=== PATIENT | female | born 1935 | race Caucasian/White ===

== ENCOUNTER → 2017-11-06 | Outpatient (REF) | payer MEDICARE, OTHER ==
[2017-11-06 19:10] LABS: ALBUMIN 4.1 GM/DL (3.2-5.2); ALBUMIN/GLOBULIN RATIO 1.32 (1.00-1.93); ALKALINE PHOSPHATASE 62 U/L (45-117); ALT/SGPT 18 U/L (12-78); ANION GAP 5 MEQ/L (8-16); AST/SGOT 14 U/L (7-37); BILIRUBIN,TOTAL 0.3 MG/DL (0.2-1.0); BLOOD UREA NITROGEN 15 MG/DL (7-18); C REACTIVE PROTEIN QUANTITATIV < 0.30 MG/DL (0.00-0.30); CALCIUM LEVEL 8.7 MG/DL (8.8-10.2); CARBON DIOXIDE LEVEL 31 MEQ/L (21-32); CHLORIDE LEVEL 103 MEQ/L (98-107); CREATININE FOR GFR 0.78 MG/DL (0.55-1.30); FREE T4 1.18 NG/DL (0.76-1.46); GLOMERULAR FILTRATION RATE > 60.0 (>32); GLUCOSE, FASTING 88 MG/DL (70-100); IRON (FE) 56 UG/DL (50-170); PERCENT SATURATION 17.3 % (13.2-45.0); SODIUM LEVEL 139 MEQ/L (136-145); TOTAL IRON BINDING CAPACITY 324 UG/DL (250-450); TOTAL PROTEIN 7.2 GM/DL (6.4-8.2)
[2017-11-06 19:12] LABS: APPEARANCE, URINE CLEAR (CLEAR); BACTERIA, URINE AUTO NEGATIVE (NEGATIVE); BILIRUBIN, URINE AUTO NEGATIVE (NEGATIVE); BLOOD, URINE BLOOD 1+ (NEGATIVE); COLOR, URINE YELLOW (YELLOW); GLUCOSE, URINE (UA) AUTO NEGATIVE (NEGATIVE); KETONE, URINE AUTO NEGATIVE (NEGATIVE); LEUKOCYTE ESTERASE, URINE AUTO NEGATIVE (NEGATIVE); NITRITE, URINE AUTO NEGATIVE (NEGATIVE); PROTEIN, URINE AUTO NEGATIVE (NEGATIVE); RBC, URINE AUTO 17 /HPF (0-3); SPECIFIC GRAVITY URINE AUTO 1.015 (1.002-1.035); SQUAMOUS EPITHELIAL CELL UR AU 0 /HPF (0-6); UROBILINOGEN, URINE AUTO 0.2 mg/dL (0.0-2.0); WBC, URINE AUTO 1 /HPF (0-3)
[2017-11-06 19:27] LABS: BASO # 0.1 10^3/uL (0.0-0.2); BASO % 0.8 % (0.0-1.0); EOS # 0.1 10^3/uL (0.0-0.50); EOS % 1.5 % (0.0-3.0); HEMATOCRIT 39.9 % (36.0-47.0); IMMATURE GRANULOCYTE % 0.3 % (0-3.0); LYMPH # 1.1 10^3/uL (1.5-4.5); LYMPH % 16.9 % (24.0-44.0); MEAN CORPUSCULAR HEMOGLOBIN 31.6 pg (27.0-33.0); MEAN CORPUSCULAR HGB CONC 32.6 g/dl (32.0-36.5); MEAN CORPUSCULAR VOLUME 97.1 fl (80.0-96.0); MONO # 0.5 10^3/uL (0.0-0.8); MONO % 7.5 % (0.0-5.0); NEUTROPHILS # 4.9 10^3/uL (1.8-7.7); PLATELET COUNT, AUTOMATED 310 10^3/uL (150-450); RED BLOOD COUNT 4.11 10^6/uL (4.00-5.40); RED CELL DISTRIBUTION WIDTH 13.2 % (11.5-14.5); WHITE BLOOD COUNT 6.6 10^3/uL (4.0-10.0)
[2017-11-06 20:08] LABS: ERYTHROCYTE SEDIMENTATION RATE 5 mm/hr (0-30)
[2017-11-09 00:08] LABS: Lyme Disease IgG/IgM Antibodie <0.91 ISR (0.00-0.90); Lyme Disease IgM Ab Quantitati <0.80 index (0.00-0.79)
== END ==
LOC: M SFHCPLAZ 13:29
DX: A69.20 Lyme disease, unspecified (principal); E03.9 Hypothyroidism, unspecified; R53.82 Chronic fatigue, unspecified; R35.0 Frequency of micturition; E78.00 Pure hypercholesterolemia, unspecified; F51.01 Primary insomnia; Z79.82 Long term (current) use of aspirin; Z79.899 Other long term (current) drug therapy
CPT/HCPCS: 83550

== ENCOUNTER → 2017-11-22 | Outpatient (REF) | payer MEDICARE, OTHER ==
[2017-11-22 13:44] LABS: APPEARANCE, URINE CLEAR (CLEAR); BACTERIA, URINE AUTO NEGATIVE (NEGATIVE); BILIRUBIN, URINE AUTO NEGATIVE (NEGATIVE); BLOOD, URINE BLOOD NEGATIVE (NEGATIVE); COLOR, URINE YELLOW (YELLOW); GLUCOSE, URINE (UA) AUTO NEGATIVE (NEGATIVE); KETONE, URINE AUTO NEGATIVE (NEGATIVE); LEUKOCYTE ESTERASE, URINE AUTO 2+ (NEGATIVE); MUCUS, URINE SMALL (NEGATIVE); NITRITE, URINE AUTO NEGATIVE (NEGATIVE); PROTEIN, URINE AUTO NEGATIVE (NEGATIVE); RBC, URINE AUTO 4 /HPF (0-3); SQUAMOUS EPITHELIAL CELL UR AU 0 /HPF (0-6); UROBILINOGEN, URINE AUTO 0.2 mg/dL (0.0-2.0); WBC, URINE AUTO 4 /HPF (0-3)
== END ==
LOC: M SMT 13:04
DX: R31.29 Other microscopic hematuria (principal)
CPT/HCPCS: 81001

== ENCOUNTER → 2018-01-01 | Outpatient (CLI) | payer MEDICARE, OTHER ==
[2018-01-01 19:56] LABS: BASO % 0.1 % (0.0-1.0); HEMATOCRIT 46.8 % (36.0-47.0); HEMOGLOBIN 15.4 g/dl (12.0-15.5); IMMATURE GRANULOCYTE % 0.7 % (0-3.0); LYMPH # 0.6 10^3/uL (1.5-4.5); LYMPH % 4.4 % (24.0-44.0); MEAN CORPUSCULAR HEMOGLOBIN 31.6 pg (27.0-33.0); MEAN CORPUSCULAR HGB CONC 32.9 g/dl (32.0-36.5); MEAN CORPUSCULAR VOLUME 96.1 fl (80.0-96.0); MONO # 0.3 10^3/uL (0.0-0.8); MONO % 2.3 % (0.0-5.0); NEUTROPHILS # 13.2 10^3/uL (1.8-7.7); NEUTROPHILS % 92.5 % (36.0-66.0); PLATELET COUNT, AUTOMATED 363 10^3/uL (150-450); RED BLOOD COUNT 4.87 10^6/uL (4.00-5.40); RED CELL DISTRIBUTION WIDTH 13.2 % (11.5-14.5); WHITE BLOOD COUNT 14.3 10^3/uL (4.0-10.0)
[2018-01-01 20:09] LABS: INR 1.01; PROTHROMBIN TIME 13.4 SECONDS (12.1-14.4)
[2018-01-01 20:10] LABS: PARTIAL THROMBOPLASTIN TIME 25.3 SECONDS (25.4-37.6)
[2018-01-01 20:12] LABS: COLLAGEN EPINEPHRINE 79 SECONDS (74-162)
[2018-01-01 20:23] LABS: ALBUMIN 3.8 GM/DL (3.2-5.2); ALBUMIN/GLOBULIN RATIO 0.95 (1.00-1.93); ALKALINE PHOSPHATASE 93 U/L (45-117); ALT/SGPT 30 U/L (12-78); ANION GAP 10 MEQ/L (8-16); AST/SGOT 13 U/L (7-37); BILIRUBIN,TOTAL 0.4 MG/DL (0.2-1.0); BLOOD UREA NITROGEN 22 MG/DL (7-18); CALCIUM LEVEL 8.9 MG/DL (8.8-10.2); CARBON DIOXIDE LEVEL 32 MEQ/L (21-32); CHLORIDE LEVEL 93 MEQ/L (98-107); CREATININE FOR GFR 0.82 MG/DL (0.55-1.30); GLOMERULAR FILTRATION RATE > 60.0 (>32); GLUCOSE, FASTING 175 MG/DL (70-100); SODIUM LEVEL 135 MEQ/L (136-145); TOTAL PROTEIN 7.8 GM/DL (6.4-8.2)
== END ==
LOC: M LAB 19:06
DX: Z01.818 Encounter for other preprocedural examination (principal)

== ENCOUNTER 2018-01-04 06:31 | Inpatient (IN) | payer MEDICARE, OTHER ==
[2018-01-04] MEDS ORDERED: LR 1,000 ML IV (06:45)
[2018-01-04] MEDS ORDERED: LIDOCAINE 2% INJ 100 MG/5 ML SDV (FOR ANES.) As Ordered (07:29)
[2018-01-04] MEDS ORDERED: fentaNYL 100 MCG/2 ML INJECTION (J3010) As Ordered (07:29)
[2018-01-04] MEDS ORDERED: ROCURONIUM BROMIDE 50 MG/5 ML VIAL As Ordered ×2 (07:29→10:49)
[2018-01-04] MEDS ORDERED: PROPOFOL 200 MG/20 ML VIAL As Ordered ×2 (07:29→07:58)
[2018-01-04] MEDS ORDERED: REMIFENTANIL 1MG 3ML VIAL As Ordered (07:42)
[2018-01-04] MEDS ORDERED: PHENYLEPHRINE INJ 10MG/ML VIAL (J2370) As Ordered (07:47)
[2018-01-04 09:22] LABS: COLLAGEN EPINEPHRINE 93 SECONDS (74-162)
[2018-01-04] MEDS ORDERED: dexameTHASONE 4 MG/ML 1ML VIAL (J1100) As Ordered (10:50)
[2018-01-04 10:51] LABS: iSTAT CA++ 4.4 MG/DL (4.5-5.3)
[2018-01-04] MEDS ORDERED: ePHEDrine SULFATE 25 MG/5 ML(5MG/ML) SYRINGE As Ordered (11:04)
[2018-01-04] MEDS: THROMBIN SOLN 20,000 UNITS KIT As Ordered ×2 (11:35→12:20)
[2018-01-04] MEDS: LIDOCAINE W/EPINEPHRINE 1% 20ML VIAL As Ordered (12:35)
[2018-01-04] MEDS ORDERED: ONDANSETRON 4MG/2ML VIAL (J2405) As Ordered (12:38)
[2018-01-04] MEDS ORDERED: NEOSTIGMINE 10 MG/10 ML VIAL (J2710) As Ordered (12:39)
[2018-01-04] MEDS ORDERED: GLYCOPYRROLATE INJ 0.2 MG/ML 2 ML VIAL As Ordered ×2 (12:39)
[2018-01-04] MEDS ORDERED: HYDROmorphone HCL 2 MG/ML 1ML VIAL (J1170) As Ordered (12:51)
[2018-01-04] MEDS: KCL 20MEQ IN D5/0.45NS 1000ML 1,000 ML IV ×2 (13:30→23:56)
[2018-01-04] MEDS: LR 1,000 ML IV (13:45)
[2018-01-04] MEDS ORDERED: HYDROMORPHONE HCL 0.5 MG/ 0.5 ML SYRINGE (J1170 PER 1) IV (13:45)
[2018-01-04] MEDS ORDERED: ONDANSETRON 4MG/2ML VIAL (J2405) IV (13:45)
[2018-01-04] MEDS ORDERED: fentaNYL 100 MCG/2 ML INJECTION (J3010) IV (13:45)
[2018-01-04] MEDS ORDERED: LABETALOL HCL 100 MG/20 ML VIAL IV (13:45)
[2018-01-04] MEDS ORDERED: PERCOCET 5MG/325MG TAB PO (13:45)
[2018-01-04 14:13] LABS: CHLORIDE,RANDOM URINE 63 MEQ/L; POTASSIUM RANDOM URINE 21.8 MEQ/L; SODIUM,RANDOM URINE 70 MEQ/L
[2018-01-04 14:16] LABS: OSMOLALITY SERUM 283 MOSM/KG (280-301)
[2018-01-04 14:18] LABS: ANION GAP 9 MEQ/L (8-16); BLOOD UREA NITROGEN 18 MG/DL (7-18); CALCIUM LEVEL 8.2 MG/DL (8.8-10.2); CARBON DIOXIDE LEVEL 28 MEQ/L (21-32); CHLORIDE LEVEL 99 MEQ/L (98-107); CREATININE FOR GFR 0.74 MG/DL (0.55-1.30); GLOMERULAR FILTRATION RATE > 60.0 (>32); GLUCOSE, FASTING 111 MG/DL (70-100); POTASSIUM SERUM 4.2 MEQ/L (3.5-5.1); SODIUM LEVEL 136 MEQ/L (136-145)
[2018-01-04 14:19] LABS: OSMOLALITY URINE 258 MOSM/KG (500-800)
[2018-01-04] MEDS: ACETAMINOPHEN 500 MG TAB PO (14:25)
[2018-01-04] MEDS: ceFAZolin SOD 1 GM in D5W MINI-BAG PLUS 50 ML IV ×2 (16:45→23:56)
[2018-01-04] MEDS: dexameTHASONE 4 MG/ML 1ML VIAL (J1100) IV ×2 (16:45→23:56)
[2018-01-04] MEDS: PANTOPRAZOLE 40MG INJ (PROTONIX) (C9113) IV (20:31)
[2018-01-04] MEDS: ACETAMINOPHEN TAB 650MG DOSE (2X325MG) PO (20:31)
[2018-01-04] MEDS: SERTRALINE HCL 25 MG TABLET PO (20:32)
[2018-01-05] MEDS: ACETAMINOPHEN TAB 650MG DOSE (2X325MG) PO ×3 (02:36→15:37)
[2018-01-05] MEDS: ceFAZolin SOD 1 GM in D5W MINI-BAG PLUS 50 ML IV ×2 (04:54→12:20)
[2018-01-05] MEDS: dexameTHASONE 4 MG/ML 1ML VIAL (J1100) IV ×4 (04:54→23:52)
[2018-01-05] MEDS: LEVOTHYROXINE 50MCG TABLET (0.05MG) PO (05:05)
[2018-01-05 05:13] LABS: BASO % 0.1 % (0.0-1.0); EOS % 0.1 % (0.0-3.0); HEMATOCRIT 36.2 % (36.0-47.0); HEMOGLOBIN 12.3 g/dl (12.0-15.5); IMMATURE GRANULOCYTE % 0.7 % (0-3.0); LYMPH # 0.5 10^3/uL (1.5-4.5); LYMPH % 2.4 % (24.0-44.0); MEAN CORPUSCULAR HEMOGLOBIN 31.8 pg (27.0-33.0); MEAN CORPUSCULAR VOLUME 93.5 fl (80.0-96.0); MONO # 0.7 10^3/uL (0.0-0.8); MONO % 3.5 % (0.0-5.0); NEUTROPHILS # 17.8 10^3/uL (1.8-7.7); NEUTROPHILS % 93.2 % (36.0-66.0); PLATELET COUNT, AUTOMATED 264 10^3/uL (150-450); RED BLOOD COUNT 3.87 10^6/uL (4.00-5.40); RED CELL DISTRIBUTION WIDTH 13.2 % (11.5-14.5)
[2018-01-05 05:32] LABS: OSMOLALITY SERUM 270 MOSM/KG (280-301)
[2018-01-05 05:37] LABS: ALBUMIN 2.1 GM/DL (3.2-5.2); ALBUMIN/GLOBULIN RATIO 0.95 (1.00-1.93); ALKALINE PHOSPHATASE 44 U/L (45-117); ALT/SGPT 30 U/L (12-78); ANION GAP 10 MEQ/L (8-16); AST/SGOT 17 U/L (7-37); BILIRUBIN,TOTAL 0.3 MG/DL (0.2-1.0); CARBON DIOXIDE LEVEL 21 MEQ/L (21-32); CHLORIDE LEVEL 108 MEQ/L (98-107); GLOMERULAR FILTRATION RATE > 60.0 (>32); GLUCOSE, FASTING 99 MG/DL (70-100); POTASSIUM SERUM 3.2 MEQ/L (3.5-5.1); SODIUM LEVEL 139 MEQ/L (136-145); TOTAL PROTEIN 4.3 GM/DL (6.4-8.2)
[2018-01-05 05:43] LABS: CALCIUM,RANDOM URINE 11.4 MG/DL; CHLORIDE,RANDOM URINE 166 MEQ/L; SODIUM,RANDOM URINE 164 MEQ/L
[2018-01-05 05:55] LABS: BLOOD UREA NITROGEN 9 MG/DL (7-18)
[2018-01-05 05:59] LABS: CALCIUM LEVEL 5.8 MG/DL (8.8-10.2)
[2018-01-05] MEDS ORDERED: LIDOCAINE 1% MDV 20ML VIAL SQ (06:00)
[2018-01-05] MEDS: CALCIUM/VITAMIN D 500 MG TAB PO ×2 (06:51)
[2018-01-05 07:39] LABS: OSMOLALITY URINE 448 MOSM/KG (500-800)
[2018-01-05] MEDS: SERTRALINE HCL 50 MG TAB PO (08:47)
[2018-01-05] MEDS: PANTOPRAZOLE 40MG INJ (PROTONIX) (C9113) IV ×2 (08:48→20:22)
[2018-01-05 08:56] LABS: GLUCOSE, URINE (UA) AUTO NEGATIVE (NEGATIVE)
[2018-01-05] MEDS ORDERED: CALCIUM/VITAMIN D 500 MG TAB PO (09:00)
[2018-01-05 09:39] LABS: IONIZED CALCIUM 4.1 MG/DL (4.5-5.3)
[2018-01-05 09:47] LABS: MAGNESIUM LEVEL 1.4 MG/DL (1.8-2.4)
[2018-01-05] MEDS: KCL 20MEQ IN D5/0.45NS 1000ML 1,000 ML IV (10:45)
[2018-01-05] MEDS: POTASSIUM CHLORIDE 10 MEQ SR TABLET PO (10:46)
[2018-01-05] MEDS: MAG SULF 1GM/100ML (MAG RUN) 1 GM in APPROPRIATE DILUENT 1 EA IV ×2 (10:47→14:11)
[2018-01-05] MEDS: NEUTRA-PHOS 1.25 GM PACKET PO ×2 (12:21→17:15)
[2018-01-05] MEDS: CALCIUM CHLORIDE 10% 1 GM in D5W 100 ML IV ×2 (15:06)
[2018-01-05] MEDS: CALCITRIOL 0.25 MCG CAP (S0169) PO ×2 (15:37→20:23)
[2018-01-05 17:45] LABS: IONIZED CALCIUM 4.8 MG/DL (4.5-5.3)
[2018-01-05 18:06] LABS: ANION GAP 11 MEQ/L (8-16); BLOOD UREA NITROGEN 11 MG/DL (7-18); CALCIUM LEVEL 9.7 MG/DL (8.8-10.2); CARBON DIOXIDE LEVEL 25 MEQ/L (21-32); CHLORIDE LEVEL 88 MEQ/L (98-107); CREATININE FOR GFR 0.74 MG/DL (0.55-1.30); GLUCOSE, FASTING 138 MG/DL (70-100); MAGNESIUM LEVEL 2.3 MG/DL (1.8-2.4); POTASSIUM SERUM 4.7 MEQ/L (3.5-5.1); SODIUM LEVEL 124 MEQ/L (136-145)
[2018-01-05 18:08] LABS: GLOMERULAR FILTRATION RATE > 60.0 (>32)
[2018-01-05] MEDS: NORCO, ANEXSIA 5/325MG TABLET (HYDROcodone/ACETAMINOPHEN) PO (18:47)
[2018-01-05] MEDS: SERTRALINE HCL 25 MG TABLET PO (20:22)
[2018-01-05] MEDS: MINERAL ICE TOP (20:23)
[2018-01-05 20:48] LABS: ANION GAP 9 MEQ/L (8-16); BLOOD UREA NITROGEN 12 MG/DL (7-18); CALCIUM LEVEL 8.8 MG/DL (8.8-10.2); CARBON DIOXIDE LEVEL 26 MEQ/L (21-32); CHLORIDE LEVEL 88 MEQ/L (98-107); CREATININE FOR GFR 0.72 MG/DL (0.55-1.30); GLOMERULAR FILTRATION RATE > 60.0 (>32); GLUCOSE, FASTING 147 MG/DL (70-100); POTASSIUM SERUM 4.7 MEQ/L (3.5-5.1); SODIUM LEVEL 123 MEQ/L (136-145)
[2018-01-05 21:09] LABS: CALCIUM,RANDOM URINE 34.6 MG/DL; CHLORIDE,RANDOM URINE 152 MEQ/L; SODIUM,RANDOM URINE 79 MEQ/L
[2018-01-05] MEDS: KCL 20MEQ in NS 1000ML 1,000 ML IV (21:40)
[2018-01-05] MEDS: FUROSEMIDE 40 MG/4 ML VIAL (J1940) IV (21:40)
[2018-01-05 22:46] LABS: OSMOLALITY URINE 429 MOSM/KG (500-800)
[2018-01-06 00:32] LABS: ANION GAP 8 MEQ/L (8-16); BLOOD UREA NITROGEN 13 MG/DL (7-18); CALCIUM LEVEL 8.7 MG/DL (8.8-10.2); CARBON DIOXIDE LEVEL 30 MEQ/L (21-32); CHLORIDE LEVEL 85 MEQ/L (98-107); CREATININE FOR GFR 0.72 MG/DL (0.55-1.30); GLOMERULAR FILTRATION RATE > 60.0 (>32); GLUCOSE, FASTING 130 MG/DL (70-100); POTASSIUM SERUM 3.7 MEQ/L (3.5-5.1); SODIUM LEVEL 123 MEQ/L (136-145)
[2018-01-06] MEDS: NORCO, ANEXSIA 5/325MG TABLET (HYDROcodone/ACETAMINOPHEN) PO ×2 (00:40→22:35)
[2018-01-06] MEDS: ACETAMINOPHEN TAB 650MG DOSE (2X325MG) PO ×2 (04:13→10:19)
[2018-01-06 04:21] LABS: BASO % 0.1 % (0.0-1.0); HEMATOCRIT 37.3 % (36.0-47.0); IMMATURE GRANULOCYTE % 0.8 % (0-3.0); LYMPH # 0.6 10^3/uL (1.5-4.5); LYMPH % 3.7 % (24.0-44.0); MEAN CORPUSCULAR HEMOGLOBIN 31.7 pg (27.0-33.0); MEAN CORPUSCULAR HGB CONC 34.9 g/dl (32.0-36.5); MONO # 0.9 10^3/uL (0.0-0.8); MONO % 5.4 % (0.0-5.0); NEUTROPHILS # 14.5 10^3/uL (1.8-7.7); PLATELET COUNT, AUTOMATED 250 10^3/uL (150-450); RED CELL DISTRIBUTION WIDTH 12.8 % (11.5-14.5); WHITE BLOOD COUNT 16.1 10^3/uL (4.0-10.0)
[2018-01-06 04:22] LABS: IONIZED CALCIUM 4.1 MG/DL (4.5-5.3)
[2018-01-06 04:48] LABS: ALBUMIN/GLOBULIN RATIO 0.94 (1.00-1.93); ALKALINE PHOSPHATASE 70 U/L (45-117); ALT/SGPT 126 U/L (12-78); ANION GAP 12 MEQ/L (8-16); AST/SGOT 68 U/L (7-37); BILIRUBIN,TOTAL 0.5 MG/DL (0.2-1.0); BLOOD UREA NITROGEN 14 MG/DL (7-18); CALCIUM LEVEL 8.5 MG/DL (8.8-10.2); CARBON DIOXIDE LEVEL 28 MEQ/L (21-32); CHLORIDE LEVEL 86 MEQ/L (98-107); CREATININE FOR GFR 0.68 MG/DL (0.55-1.30); GLOMERULAR FILTRATION RATE > 60.0 (>32); GLUCOSE, FASTING 119 MG/DL (70-100); MAGNESIUM LEVEL 1.9 MG/DL (1.8-2.4); PHOSPHORUS LEVEL 3.7 MG/DL (2.5-4.9); POTASSIUM SERUM 4.3 MEQ/L (3.5-5.1); SODIUM LEVEL 126 MEQ/L (136-145); TOTAL PROTEIN 6.2 GM/DL (6.4-8.2)
[2018-01-06 04:57] LABS: CALCIUM,RANDOM URINE 16.3 MG/DL; CHLORIDE,RANDOM URINE 101 MEQ/L; POTASSIUM RANDOM URINE 38.2 MEQ/L; SODIUM,RANDOM URINE 78 MEQ/L
[2018-01-06 05:10] LABS: OSMOLALITY SERUM 259 MOSM/KG (280-301)
[2018-01-06 05:16] LABS: OSMOLALITY URINE 334 MOSM/KG (500-800)
[2018-01-06] MEDS: SERTRALINE HCL 50 MG TAB PO (05:55)
[2018-01-06] MEDS: dexameTHASONE 4 MG/ML 1ML VIAL (J1100) IV ×3 (05:55→16:58)
[2018-01-06] MEDS: LEVOTHYROXINE 50MCG TABLET (0.05MG) PO (05:55)
[2018-01-06 06:07] LABS: GLUCOSE, URINE (UA) AUTO NEGATIVE (NEGATIVE)
[2018-01-06] MEDS: NEUTRA-PHOS 1.25 GM PACKET PO ×3 (07:54→21:20)
[2018-01-06 08:53] LABS: ANION GAP 8 MEQ/L (8-16); BLOOD UREA NITROGEN 15 MG/DL (7-18); CALCIUM LEVEL 8.8 MG/DL (8.8-10.2); CARBON DIOXIDE LEVEL 30 MEQ/L (21-32); CHLORIDE LEVEL 86 MEQ/L (98-107); CREATININE FOR GFR 0.66 MG/DL (0.55-1.30); GLOMERULAR FILTRATION RATE > 60.0 (>32); GLUCOSE, FASTING 112 MG/DL (70-100); POTASSIUM SERUM 4.4 MEQ/L (3.5-5.1); SODIUM LEVEL 124 MEQ/L (136-145)
[2018-01-06] MEDS: CALCIUM/VITAMIN D 500 MG TAB PO (09:00)
[2018-01-06] MEDS: CALCITRIOL 0.25 MCG CAP (S0169) PO (10:01)
[2018-01-06] MEDS: SODIUM CHLORIDE 1 GM TAB PO (10:02)
[2018-01-06] MEDS: FUROSEMIDE 40 MG/4 ML VIAL (J1940) IV (10:02)
[2018-01-06] MEDS: PANTOPRAZOLE 40MG INJ (PROTONIX) (C9113) IV ×2 (10:03→21:20)
[2018-01-06] MEDS: KCL 20MEQ in NS 1000ML 1,000 ML IV (10:45)
[2018-01-06] MEDS: LOSARTAN 25 MG TAB PO (10:45)
[2018-01-06 12:55] LABS: ANION GAP 10 MEQ/L (8-16); BLOOD UREA NITROGEN 17 MG/DL (7-18); CALCIUM LEVEL 8.6 MG/DL (8.8-10.2); CARBON DIOXIDE LEVEL 32 MEQ/L (21-32); CHLORIDE LEVEL 81 MEQ/L (98-107); CREATININE FOR GFR 0.75 MG/DL (0.55-1.30); GLOMERULAR FILTRATION RATE > 60.0 (>32); GLUCOSE, FASTING 134 MG/DL (70-100); POTASSIUM SERUM 3.4 MEQ/L (3.5-5.1); SODIUM LEVEL 123 MEQ/L (136-145)
[2018-01-06] MEDS: SODIUM CHLORIDE 3% 500 ML IV (14:14)
[2018-01-06 16:56] LABS: ANION GAP 13 MEQ/L (8-16); BLOOD UREA NITROGEN 21 MG/DL (7-18); CARBON DIOXIDE LEVEL 27 MEQ/L (21-32); CHLORIDE LEVEL 84 MEQ/L (98-107); CREATININE FOR GFR 0.93 MG/DL (0.55-1.30); GLOMERULAR FILTRATION RATE > 60.0 (>32); GLUCOSE, FASTING 160 MG/DL (70-100); POTASSIUM SERUM 3.7 MEQ/L (3.5-5.1); SODIUM LEVEL 124 MEQ/L (136-145)
[2018-01-06] MEDS: POTASSIUM CHLORIDE 10 MEQ SR TABLET PO ×2 (16:58→21:20)
[2018-01-06] MEDS ORDERED: SERTRALINE HCL 25 MG TABLET PO (18:00)
[2018-01-06 18:54] LABS: ANION GAP 12 MEQ/L (8-16); BLOOD UREA NITROGEN 23 MG/DL (7-18); CARBON DIOXIDE LEVEL 29 MEQ/L (21-32); CHLORIDE LEVEL 85 MEQ/L (98-107); CREATININE FOR GFR 0.84 MG/DL (0.55-1.30); GLOMERULAR FILTRATION RATE > 60.0 (>32); GLUCOSE, FASTING 122 MG/DL (70-100); SODIUM LEVEL 126 MEQ/L (136-145)
[2018-01-06 20:44] LABS: ANION GAP 11 MEQ/L (8-16); BLOOD UREA NITROGEN 26 MG/DL (7-18); CALCIUM LEVEL 8.9 MG/DL (8.8-10.2); CARBON DIOXIDE LEVEL 29 MEQ/L (21-32); CHLORIDE LEVEL 87 MEQ/L (98-107); CREATININE FOR GFR 0.87 MG/DL (0.55-1.30); GLOMERULAR FILTRATION RATE > 60.0 (>32); GLUCOSE, FASTING 120 MG/DL (70-100); POTASSIUM SERUM 4.1 MEQ/L (3.5-5.1); SODIUM LEVEL 127 MEQ/L (136-145)
[2018-01-06] MEDS: dexameTHASONE 20 MG/5 ML VIAL (J1100) IV (23:13)
[2018-01-06 23:22] LABS: ANION GAP 9 MEQ/L (8-16); BLOOD UREA NITROGEN 35 MG/DL (7-18); CALCIUM LEVEL 9.1 MG/DL (8.8-10.2); CARBON DIOXIDE LEVEL 28 MEQ/L (21-32); CHLORIDE LEVEL 90 MEQ/L (98-107); CREATININE FOR GFR 0.89 MG/DL (0.55-1.30); GLOMERULAR FILTRATION RATE > 60.0 (>32); GLUCOSE, FASTING 164 MG/DL (70-100); POTASSIUM SERUM 4.1 MEQ/L (3.5-5.1); SODIUM LEVEL 127 MEQ/L (136-145)
[2018-01-07] MEDS: SODIUM CHLORIDE 3% 500 ML IV (04:28)
[2018-01-07] MEDS: dexameTHASONE 20 MG/5 ML VIAL (J1100) IV ×3 (04:28→17:53)
[2018-01-07 04:29] LABS: EOS % 0.2 % (0.0-3.0); HEMATOCRIT 35.6 % (36.0-47.0); HEMOGLOBIN 12.5 g/dl (12.0-15.5); LYMPH # 0.4 10^3/uL (1.5-4.5); LYMPH % 3.3 % (24.0-44.0); MEAN CORPUSCULAR HEMOGLOBIN 31.9 pg (27.0-33.0); MEAN CORPUSCULAR HGB CONC 35.1 g/dl (32.0-36.5); MEAN CORPUSCULAR VOLUME 90.8 fl (80.0-96.0); MONO # 0.6 10^3/uL (0.0-0.8); MONO % 4.3 % (0.0-5.0); NEUTROPHILS # 12.1 10^3/uL (1.8-7.7); NEUTROPHILS % 91.2 % (36.0-66.0); PLATELET COUNT, AUTOMATED 251 10^3/uL (150-450); RED BLOOD COUNT 3.92 10^6/uL (4.00-5.40); RED CELL DISTRIBUTION WIDTH 13.4 % (11.5-14.5); WHITE BLOOD COUNT 13.2 10^3/uL (4.0-10.0)
[2018-01-07 04:50] LABS: ALBUMIN 2.5 GM/DL (3.2-5.2); ALBUMIN/GLOBULIN RATIO 0.74 (1.00-1.93); ALKALINE PHOSPHATASE 62 U/L (45-117); ALT/SGPT 81 U/L (12-78); ANION GAP 8 MEQ/L (8-16); AST/SGOT 32 U/L (7-37); BILIRUBIN,TOTAL 0.3 MG/DL (0.2-1.0); BLOOD UREA NITROGEN 32 MG/DL (7-18); CALCIUM LEVEL 8.8 MG/DL (8.8-10.2); CARBON DIOXIDE LEVEL 29 MEQ/L (21-32); CHLORIDE LEVEL 93 MEQ/L (98-107); CREATININE FOR GFR 0.89 MG/DL (0.55-1.30); GLOMERULAR FILTRATION RATE > 60.0 (>32); GLUCOSE, FASTING 140 MG/DL (70-100); POTASSIUM SERUM 4.5 MEQ/L (3.5-5.1); SODIUM LEVEL 130 MEQ/L (136-145); TOTAL PROTEIN 5.9 GM/DL (6.4-8.2)
[2018-01-07 05:00] LABS: OSMOLALITY SERUM 282 MOSM/KG (280-301)
[2018-01-07] MEDS: LEVOTHYROXINE 50MCG TABLET (0.05MG) PO (05:38)
[2018-01-07 06:28] LABS: GLUCOSE, URINE (UA) AUTO NEGATIVE (NEGATIVE)
[2018-01-07 06:36] LABS: OSMOLALITY URINE 746 MOSM/KG (500-800)
[2018-01-07 06:38] LABS: MAGNESIUM LEVEL 1.9 MG/DL (1.8-2.4); PHOSPHORUS LEVEL 4.8 MG/DL (2.5-4.9)
[2018-01-07 06:46] LABS: CALCIUM,RANDOM URINE 34.9 MG/DL; CHLORIDE,RANDOM URINE 23 MEQ/L; POTASSIUM RANDOM URINE 57.8 MEQ/L; SODIUM,RANDOM URINE 15 MEQ/L
[2018-01-07] MEDS: PANTOPRAZOLE 40MG INJ (PROTONIX) (C9113) IV ×2 (08:50→20:58)
[2018-01-07] MEDS: ACETAMINOPHEN TAB 650MG DOSE (2X325MG) PO ×3 (08:50→20:58)
[2018-01-07] MEDS: CALCIUM/VITAMIN D 500 MG TAB PO (08:50)
[2018-01-07] MEDS: POTASSIUM CHLORIDE 10 MEQ SR TABLET PO ×2 (08:51→20:58)
[2018-01-07 09:11] LABS: TOTAL 25(OH) VITAMIN D 40.7 NG/ML (30.0-100.0)
[2018-01-07] MEDS: SODIUM CHLORIDE 1 GM TAB PO ×3 (09:43→20:58)
[2018-01-07 09:56] LABS: PTH INTACT 63.7 PG/ML (18.5-88.0)
[2018-01-07 10:42] LABS: ALBUMIN 2.9 GM/DL (3.2-5.2); ANION GAP 12 MEQ/L (8-16); BLOOD UREA NITROGEN 31 MG/DL (7-18); CARBON DIOXIDE LEVEL 25 MEQ/L (21-32); CHLORIDE LEVEL 94 MEQ/L (98-107); CREATININE FOR GFR 0.93 MG/DL (0.55-1.30); GLOMERULAR FILTRATION RATE > 60.0 (>32); GLUCOSE, FASTING 191 MG/DL (70-100); PHOSPHORUS LEVEL 4.1 MG/DL (2.5-4.9); POTASSIUM SERUM 4.3 MEQ/L (3.5-5.1); SODIUM LEVEL 131 MEQ/L (136-145)
[2018-01-07] MEDS: NORCO, ANEXSIA 5/325MG TABLET (HYDROcodone/ACETAMINOPHEN) PO (11:18)
[2018-01-07 18:27] LABS: ANION GAP 10 MEQ/L (8-16); BLOOD UREA NITROGEN 32 MG/DL (7-18); CALCIUM LEVEL 8.7 MG/DL (8.8-10.2); CARBON DIOXIDE LEVEL 25 MEQ/L (21-32); CHLORIDE LEVEL 96 MEQ/L (98-107); CREATININE FOR GFR 0.83 MG/DL (0.55-1.30); GLOMERULAR FILTRATION RATE > 60.0 (>32); GLUCOSE, FASTING 155 MG/DL (70-100); POTASSIUM SERUM 4.2 MEQ/L (3.5-5.1); SODIUM LEVEL 131 MEQ/L (136-145)
[2018-01-07] MEDS: dexameTHASONE 4 MG/ML 1ML VIAL (J1100) IV (23:47)
[2018-01-08] MEDS: dexameTHASONE 4 MG/ML 1ML VIAL (J1100) IV ×4 (04:19→23:26)
[2018-01-08] MEDS: ACETAMINOPHEN TAB 650MG DOSE (2X325MG) PO (04:21)
[2018-01-08 04:47] LABS: HEMATOCRIT 35.4 % (36.0-47.0); MEAN CORPUSCULAR HEMOGLOBIN 31.7 pg (27.0-33.0); MEAN CORPUSCULAR HGB CONC 33.9 g/dl (32.0-36.5); MEAN CORPUSCULAR VOLUME 93.4 fl (80.0-96.0); PLATELET COUNT, AUTOMATED 232 10^3/uL (150-450); RED BLOOD COUNT 3.79 10^6/uL (4.00-5.40); RED CELL DISTRIBUTION WIDTH 13.8 % (11.5-14.5); WHITE BLOOD COUNT 12.6 10^3/uL (4.0-10.0)
[2018-01-08 05:10] LABS: ALBUMIN 2.4 GM/DL (3.2-5.2); ANION GAP 8 MEQ/L (8-16); BLOOD UREA NITROGEN 32 MG/DL (7-18); CALCIUM LEVEL 8.5 MG/DL (8.8-10.2); CARBON DIOXIDE LEVEL 29 MEQ/L (21-32); CHLORIDE LEVEL 96 MEQ/L (98-107); CREATININE FOR GFR 0.71 MG/DL (0.55-1.30); GLOMERULAR FILTRATION RATE > 60.0 (>32); GLUCOSE, FASTING 124 MG/DL (70-100); PHOSPHORUS LEVEL 3.1 MG/DL (2.5-4.9); POTASSIUM SERUM 4.7 MEQ/L (3.5-5.1); SODIUM LEVEL 133 MEQ/L (136-145)
[2018-01-08] MEDS: LEVOTHYROXINE 50MCG TABLET (0.05MG) PO (05:55)
[2018-01-08] MEDS: LOSARTAN 25 MG TAB PO (06:26)
[2018-01-08] MEDS: PANTOPRAZOLE 40MG INJ (PROTONIX) (C9113) IV ×2 (08:35→20:16)
[2018-01-08] MEDS: CALCIUM/VITAMIN D 500 MG TAB PO (08:35)
[2018-01-08] MEDS: SODIUM CHLORIDE 1 GM TAB PO ×3 (08:35→20:16)
[2018-01-08] MEDS: POTASSIUM CHLORIDE 10 MEQ SR TABLET PO ×2 (08:36→20:16)
[2018-01-08] MEDS: MIRALAX *UNIT DOSE* 17GM PACKET PO (20:17)
[2018-01-09] MEDS: LEVOTHYROXINE 50MCG TABLET (0.05MG) PO (05:16)
[2018-01-09] MEDS: dexameTHASONE 4 MG/ML 1ML VIAL (J1100) IV ×4 (05:16→22:09)
[2018-01-09 08:25] LABS: ALBUMIN 2.8 GM/DL (3.2-5.2); ANION GAP 10 MEQ/L (8-16); BLOOD UREA NITROGEN 28 MG/DL (7-18); CALCIUM LEVEL 8.7 MG/DL (8.8-10.2); CARBON DIOXIDE LEVEL 27 MEQ/L (21-32); CHLORIDE LEVEL 96 MEQ/L (98-107); CREATININE FOR GFR 0.64 MG/DL (0.55-1.30); GLOMERULAR FILTRATION RATE > 60.0 (>32); GLUCOSE, FASTING 124 MG/DL (70-100); PHOSPHORUS LEVEL 3.2 MG/DL (2.5-4.9); SODIUM LEVEL 133 MEQ/L (136-145)
[2018-01-09] MEDS: PANTOPRAZOLE 40MG INJ (PROTONIX) (C9113) IV ×2 (08:52→21:18)
[2018-01-09] MEDS: SODIUM CHLORIDE 1 GM TAB PO ×3 (08:52→21:17)
[2018-01-09] MEDS: CALCIUM/VITAMIN D 500 MG TAB PO (08:52)
[2018-01-10] MEDS: dexameTHASONE 4 MG/ML 1ML VIAL (J1100) IV ×4 (05:21→21:38)
[2018-01-10] MEDS: LEVOTHYROXINE 50MCG TABLET (0.05MG) PO (05:21)
[2018-01-10 07:17] LABS: ALBUMIN 2.6 GM/DL (3.2-5.2); ANION GAP 8 MEQ/L (8-16); BLOOD UREA NITROGEN 23 MG/DL (7-18); CALCIUM LEVEL 8.2 MG/DL (8.8-10.2); CARBON DIOXIDE LEVEL 30 MEQ/L (21-32); CHLORIDE LEVEL 95 MEQ/L (98-107); CREATININE FOR GFR 0.57 MG/DL (0.55-1.30); GLOMERULAR FILTRATION RATE > 60.0 (>32); GLUCOSE, FASTING 102 MG/DL (70-100); POTASSIUM SERUM 4.4 MEQ/L (3.5-5.1); SODIUM LEVEL 133 MEQ/L (136-145)
[2018-01-10] MEDS: SODIUM CHLORIDE 1 GM TAB PO ×3 (09:18→21:37)
[2018-01-10] MEDS: PANTOPRAZOLE 40MG INJ (PROTONIX) (C9113) IV ×2 (09:18→21:37)
[2018-01-10] MEDS: CALCIUM/VITAMIN D 500 MG TAB PO (09:18)
[2018-01-10] MEDS: amLODIPine 5 MG TAB PO (21:00)
[2018-01-10] MEDS: ACETAMINOPHEN TAB 650MG DOSE (2X325MG) PO (21:37)
[2018-01-11] MEDS: dexameTHASONE 4 MG/ML 1ML VIAL (J1100) IV ×3 (05:53→16:53)
[2018-01-11] MEDS: LEVOTHYROXINE 50MCG TABLET (0.05MG) PO (05:53)
[2018-01-11] MEDS: PANTOPRAZOLE 40MG INJ (PROTONIX) (C9113) IV ×2 (09:00→20:33)
[2018-01-11 10:26] LABS: ALBUMIN 2.5 GM/DL (3.2-5.2); ANION GAP 10 MEQ/L (8-16); BLOOD UREA NITROGEN 33 MG/DL (7-18); CALCIUM LEVEL 8.1 MG/DL (8.8-10.2); CARBON DIOXIDE LEVEL 27 MEQ/L (21-32); CHLORIDE LEVEL 98 MEQ/L (98-107); CREATININE FOR GFR 0.66 MG/DL (0.55-1.30); GLOMERULAR FILTRATION RATE > 60.0 (>32); GLUCOSE, FASTING 125 MG/DL (70-100); PHOSPHORUS LEVEL 2.9 MG/DL (2.5-4.9); POTASSIUM SERUM 4.2 MEQ/L (3.5-5.1); SODIUM LEVEL 135 MEQ/L (136-145)
[2018-01-11] MEDS: CALCIUM/VITAMIN D 500 MG TAB PO (10:38)
[2018-01-11] MEDS: amLODIPine 5 MG TAB PO ×2 (10:38→20:33)
[2018-01-11] MEDS: SODIUM CHLORIDE 1 GM TAB PO ×3 (10:39→20:32)
[2018-01-11] MEDS: ACETAMINOPHEN TAB 650MG DOSE (2X325MG) PO (20:40)
[2018-01-12] MEDS: LEVOTHYROXINE 50MCG TABLET (0.05MG) PO (06:28)
[2018-01-12 06:49] LABS: ALBUMIN 2.5 GM/DL (3.2-5.2); ALBUMIN/GLOBULIN RATIO 0.93 (1.00-1.93); ALKALINE PHOSPHATASE 49 U/L (45-117); ALT/SGPT 116 U/L (12-78); ANION GAP 8 MEQ/L (8-16); AST/SGOT 42 U/L (7-37); BILIRUBIN,TOTAL 0.3 MG/DL (0.2-1.0); BLOOD UREA NITROGEN 31 MG/DL (7-18); CARBON DIOXIDE LEVEL 28 MEQ/L (21-32); CHLORIDE LEVEL 101 MEQ/L (98-107); CREATININE FOR GFR 0.57 MG/DL (0.55-1.30); GLOMERULAR FILTRATION RATE > 60.0 (>32); GLUCOSE, FASTING 100 MG/DL (70-100); PHOSPHORUS LEVEL 2.7 MG/DL (2.5-4.9); POTASSIUM SERUM 4.1 MEQ/L (3.5-5.1); SODIUM LEVEL 137 MEQ/L (136-145); TOTAL PROTEIN 5.2 GM/DL (6.4-8.2)
[2018-01-12] MEDS: ISOSORBIDE MON. (IMDUR) 30 MG XR TAB PO (07:15)
[2018-01-12] MEDS: amLODIPine 5 MG TAB PO ×2 (09:00→20:18)
[2018-01-12] MEDS: PANTOPRAZOLE 40MG INJ (PROTONIX) (C9113) IV ×2 (09:57→20:16)
[2018-01-12] MEDS: SODIUM CHLORIDE 1 GM TAB PO (09:57)
[2018-01-12] MEDS: CALCIUM/VITAMIN D 500 MG TAB PO (09:58)
[2018-01-12] MEDS: ACETAMINOPHEN TAB 650MG DOSE (2X325MG) PO (20:18)
[2018-01-13] MEDS: ACETAMINOPHEN TAB 650MG DOSE (2X325MG) PO (06:29)
[2018-01-13] MEDS: LEVOTHYROXINE 50MCG TABLET (0.05MG) PO (06:29)
[2018-01-13] MEDS: ISOSORBIDE MON. (IMDUR) 30 MG XR TAB PO (10:05)
[2018-01-13] MEDS: CALCIUM/VITAMIN D 500 MG TAB PO (10:06)
[2018-01-13] MEDS: amLODIPine 5 MG TAB PO ×2 (10:06→21:37)
[2018-01-13] MEDS: SODIUM CHLORIDE 1 GM TAB PO (10:06)
[2018-01-13] MEDS: PANTOPRAZOLE 40MG INJ (PROTONIX) (C9113) IV ×2 (10:10→21:38)
[2018-01-14] MEDS: LEVOTHYROXINE 50MCG TABLET (0.05MG) PO (04:59)
[2018-01-14] MEDS: ACETAMINOPHEN TAB 650MG DOSE (2X325MG) PO ×2 (04:59→18:29)
[2018-01-14] MEDS ORDERED: PROHANCE 279.3MG/ML 15ML VIAL (A9576) As Ordered (08:05)
[2018-01-14 08:54] LABS: HEMATOCRIT 34.4 % (36.0-47.0); HEMOGLOBIN 11.9 g/dl (12.0-15.5); MEAN CORPUSCULAR HGB CONC 34.6 g/dl (32.0-36.5); MEAN CORPUSCULAR VOLUME 92.5 fl (80.0-96.0); PLATELET COUNT, AUTOMATED 156 10^3/uL (150-450); RED BLOOD COUNT 3.72 10^6/uL (4.00-5.40); RED CELL DISTRIBUTION WIDTH 13.8 % (11.5-14.5); WHITE BLOOD COUNT 10.2 10^3/uL (4.0-10.0)
[2018-01-14 08:57] LABS: ADD MANUAL DIFFER YES; DIFF SLIDE NUMBER 116; POS COUNT POS FLAG; POSITIVE MORPH POS FLAG
[2018-01-14 09:23] LABS: LYMPHOCYTES 5 % (16-52); MONOCYTES 7 % (0-8); NEUTROPHILS 88 % (35-75)
[2018-01-14 09:24] LABS: ANISOCYTOSIS 1+; PLATELET ESTIMATE NORMAL (NORMAL)
[2018-01-14 09:27] LABS: ANION GAP 9 MEQ/L (8-16); BLOOD UREA NITROGEN 24 MG/DL (7-18); CARBON DIOXIDE LEVEL 28 MEQ/L (21-32); CHLORIDE LEVEL 98 MEQ/L (98-107); GLOMERULAR FILTRATION RATE > 60.0 (>32); GLUCOSE, FASTING 116 MG/DL (70-100); POTASSIUM SERUM 4.4 MEQ/L (3.5-5.1); SODIUM LEVEL 135 MEQ/L (136-145)
[2018-01-14] MEDS: CALCIUM/VITAMIN D 500 MG TAB PO (09:59)
[2018-01-14] MEDS: SODIUM CHLORIDE 1 GM TAB PO (09:59)
[2018-01-14] MEDS: ISOSORBIDE MON. (IMDUR) 30 MG XR TAB PO (09:59)
[2018-01-14] MEDS: amLODIPine 5 MG TAB PO ×2 (10:00→20:36)
[2018-01-14] MEDS: PANTOPRAZOLE 40MG INJ (PROTONIX) (C9113) IV (10:41)
[2018-01-14] MEDS: PANTOPRAZOLE 40MG TAB (PROTONIX) PO (20:34)
[2018-01-15] MEDS: ACETAMINOPHEN TAB 650MG DOSE (2X325MG) PO ×3 (00:40→21:24)
[2018-01-15] MEDS: LEVOTHYROXINE 50MCG TABLET (0.05MG) PO (05:56)
[2018-01-15] MEDS: SODIUM CHLORIDE 1 GM TAB PO (08:55)
[2018-01-15] MEDS: PANTOPRAZOLE 40MG TAB (PROTONIX) PO ×2 (08:55→21:22)
[2018-01-15] MEDS: CALCIUM/VITAMIN D 500 MG TAB PO (08:55)
[2018-01-15] MEDS: amLODIPine 5 MG TAB PO ×2 (08:56→21:25)
[2018-01-15] MEDS: ISOSORBIDE MON. (IMDUR) 30 MG XR TAB PO (08:56)
[2018-01-16] MEDS: ACETAMINOPHEN TAB 650MG DOSE (2X325MG) PO ×2 (03:40→10:33)
[2018-01-16] MEDS: LEVOTHYROXINE 50MCG TABLET (0.05MG) PO (06:15)
[2018-01-16] MEDS: SODIUM CHLORIDE 1 GM TAB PO (09:36)
[2018-01-16] MEDS: PANTOPRAZOLE 40MG TAB (PROTONIX) PO (09:36)
[2018-01-16] MEDS: amLODIPine 5 MG TAB PO (09:36)
[2018-01-16] MEDS: CALCIUM/VITAMIN D 500 MG TAB PO (09:37)
[2018-01-16] MEDS: ISOSORBIDE MON. (IMDUR) 30 MG XR TAB PO (09:37)
[2018-01-16] MEDS: MIRALAX *UNIT DOSE* 17GM PACKET PO (11:30)
== END 2018-01-16 13:08 | DRG 26 ==
LOC: M OR 06:31 → M ICU 14:36 → M MS5PR 01-08 18:00
PROC: 00B Central Nervous System and Cranial Nerves, Excision (ICD-10-PCS; principal; 2018-01-04 07:30)
PROC: 8E09XBH Computer Assisted Procedure of Head and Neck Region, With Magnetic Resonance Imaging (ICD-10-PCS; 2018-01-04 07:30)
DX: C71.0 Malignant neoplasm of cerebrum, except lobes and ventricles (principal); G81.94 Hemiplegia, unspecified affecting left nondominant side; G97.51 Postprocedural hemorrhage of a nervous system organ or structure following a nervous system procedure; E22.2 Syndrome of inappropriate secretion of antidiuretic hormone; E83.51 Hypocalcemia; R13.10 Dysphagia, unspecified; I10 Essential (primary) hypertension; E83.39 Other disorders of phosphorus metabolism; E87.6 Hypokalemia; E03.9 Hypothyroidism, unspecified; Z86.711 Personal history of pulmonary embolism; Z90.710 Acquired absence of both cervix and uterus; Z98.49 Cataract extraction status, unspecified eye; Z88.2 Allergy status to sulfonamides; Z79.82 Long term (current) use of aspirin; Z79.899 Other long term (current) drug therapy; Z85.3 Personal history of malignant neoplasm of breast; Z92.21 Personal history of antineoplastic chemotherapy; Z92.3 Personal history of irradiation

== ENCOUNTER → 2018-01-04 | Outpatient (CLI) | payer MEDICARE, OTHER ==
[~2018-01-04] MED LIST: ACETAMINOPHEN 500 MG TAB As Ordered; PROHANCE 279.3MG/ML 15ML VIAL (A9576) As Ordered; ceFAZolin 2 GM/D5W 50 ML IV BAG (J0690 PER 500MG) As Ordered
[2018-01-04 12:02] LABS: iSTAT CA++ 4.6 MG/DL (4.5-5.3)
== END ==
LOC: M RAD 07:45
DX: C71.5 Malignant neoplasm of cerebral ventricle (principal)
CPT/HCPCS: A9576

== ENCOUNTER → 2018-01-22 | Outpatient (REF) ==
[2018-01-22 10:12] LABS: HEMATOCRIT 37.1 % (36.0-47.0); HEMOGLOBIN 12.8 g/dl (12.0-15.5); MEAN CORPUSCULAR HEMOGLOBIN 31.9 pg (27.0-33.0); MEAN CORPUSCULAR HGB CONC 34.5 g/dl (32.0-36.5); MEAN CORPUSCULAR VOLUME 92.5 fl (80.0-96.0); PLATELET COUNT, AUTOMATED 218 10^3/uL (150-450); RED BLOOD COUNT 4.01 10^6/uL (4.00-5.40); RED CELL DISTRIBUTION WIDTH 13.6 % (11.5-14.5); WHITE BLOOD COUNT 10.7 10^3/uL (4.0-10.0)
[2018-01-22 10:37] LABS: ANION GAP 11 MEQ/L (8-16); BLOOD UREA NITROGEN 28 MG/DL (7-18); CALCIUM LEVEL 8.4 MG/DL (8.8-10.2); CARBON DIOXIDE LEVEL 26 MEQ/L (21-32); CHLORIDE LEVEL 96 MEQ/L (98-107); CREATININE FOR GFR 0.67 MG/DL (0.55-1.30); GLOMERULAR FILTRATION RATE > 60.0 (>32); GLUCOSE, FASTING 189 MG/DL (70-100); POTASSIUM SERUM 4.1 MEQ/L (3.5-5.1); SODIUM LEVEL 133 MEQ/L (136-145)
== END ==
DX: E87.1 Hypo-osmolality and hyponatremia (principal)

== ENCOUNTER 2018-01-28 13:52 | Outpatient (RCR) | payer MEDICARE, OTHER | END 2018-02-01 | LOC: M ONCR 13:52 | DX: C71.0 Malignant neoplasm of cerebrum, except lobes and ventricles (principal) | CPT/HCPCS: 77334 ==

== ENCOUNTER → 2018-01-29 | Outpatient (REF) | payer MEDICARE, OTHER ==
[2018-01-29 23:10] LABS: APPEARANCE, URINE CLOUDY (CLEAR); BACTERIA, URINE AUTO 1+ (NEGATIVE); BILIRUBIN, URINE AUTO NEGATIVE (NEGATIVE); BLOOD, URINE BLOOD 1+ (NEGATIVE); COLOR, URINE YELLOW (YELLOW); GLUCOSE, URINE (UA) AUTO NEGATIVE (NEGATIVE); KETONE, URINE AUTO NEGATIVE (NEGATIVE); LEUKOCYTE ESTERASE, URINE AUTO 3+ (NEGATIVE); NITRITE, URINE AUTO NEGATIVE (NEGATIVE); PROTEIN, URINE AUTO 1+ mg/dL (NEGATIVE); RBC, URINE AUTO 7 /HPF (0-3); SPECIFIC GRAVITY URINE AUTO 1.024 (1.002-1.035); SQUAMOUS EPITHELIAL CELL UR AU 0 /HPF (0-6); UROBILINOGEN, URINE AUTO 0.2 mg/dL (0.0-2.0); WBC, URINE AUTO TNTC /HPF (0-3)
== END ==
DX: R30.0 Dysuria (principal)
CPT/HCPCS: 81001

== ENCOUNTER → 2018-01-29 | Outpatient (REF) ==
[2018-01-29 10:01] LABS: HEMATOCRIT 36.6 % (36.0-47.0); HEMOGLOBIN 12.4 g/dl (12.0-15.5); MEAN CORPUSCULAR HEMOGLOBIN 31.6 pg (27.0-33.0); MEAN CORPUSCULAR HGB CONC 33.9 g/dl (32.0-36.5); MEAN CORPUSCULAR VOLUME 93.1 fl (80.0-96.0); PLATELET COUNT, AUTOMATED 171 10^3/uL (150-450); RED BLOOD COUNT 3.93 10^6/uL (4.00-5.40); RED CELL DISTRIBUTION WIDTH 14.3 % (11.5-14.5)
[2018-01-29 10:34] LABS: ANION GAP 12 MEQ/L (8-16); BLOOD UREA NITROGEN 27 MG/DL (7-18); CARBON DIOXIDE LEVEL 27 MEQ/L (21-32); CHLORIDE LEVEL 95 MEQ/L (98-107); CREATININE FOR GFR 0.63 MG/DL (0.55-1.30); GLOMERULAR FILTRATION RATE > 60.0 (>32); GLUCOSE, FASTING 160 MG/DL (70-100); POTASSIUM SERUM 3.8 MEQ/L (3.5-5.1); SODIUM LEVEL 134 MEQ/L (136-145)
== END ==
DX: E87.1 Hypo-osmolality and hyponatremia (principal)

== ENCOUNTER 2018-01-30 13:45 | Outpatient (REF) ==
[2018-02-05 11:11] LABS: HEMATOCRIT 35.5 % (36.0-47.0); HEMOGLOBIN 12.1 g/dl (12.0-15.5); MEAN CORPUSCULAR HEMOGLOBIN 32.1 pg (27.0-33.0); MEAN CORPUSCULAR HGB CONC 34.1 g/dl (32.0-36.5); MEAN CORPUSCULAR VOLUME 94.2 fl (80.0-96.0); PLATELET COUNT, AUTOMATED 162 10^3/uL (150-450); RED BLOOD COUNT 3.77 10^6/uL (4.00-5.40); WHITE BLOOD COUNT 15.2 10^3/uL (4.0-10.0)
[2018-02-05 12:01] LABS: ANION GAP 12 MEQ/L (8-16); BLOOD UREA NITROGEN 25 MG/DL (7-18); CALCIUM LEVEL 8.1 MG/DL (8.8-10.2); CARBON DIOXIDE LEVEL 28 MEQ/L (21-32); CHLORIDE LEVEL 94 MEQ/L (98-107); GLOMERULAR FILTRATION RATE > 60.0 (>32); GLUCOSE, FASTING 170 MG/DL (70-100); POTASSIUM SERUM 3.9 MEQ/L (3.5-5.1); SODIUM LEVEL 134 MEQ/L (136-145)
== END 2018-02-05 ==
DX: E87.1 Hypo-osmolality and hyponatremia (principal)

== ENCOUNTER 2018-02-06 09:34 | Outpatient (RCR) | payer MEDICARE, OTHER | END 2018-03-03 | LOC: M ONCR 02-07 09:34 | DX: C71.0 Malignant neoplasm of cerebrum, except lobes and ventricles (principal) | CPT/HCPCS: 77300 ==

== ENCOUNTER → 2018-02-14 | Outpatient (CLI) | payer MEDICARE, OTHER | LOC: M RAD 11:20 | DX: M79.662 Pain in left lower leg (principal); R60.0 Localized edema | CPT/HCPCS: 93971 ==

== ENCOUNTER → 2018-02-15 | Outpatient (REF) ==
[2018-02-15 12:56] LABS: HEMATOCRIT 32.8 % (36.0-47.0); HEMOGLOBIN 11.1 g/dl (12.0-15.5); MEAN CORPUSCULAR HEMOGLOBIN 32.7 pg (27.0-33.0); MEAN CORPUSCULAR HGB CONC 33.8 g/dl (32.0-36.5); MEAN CORPUSCULAR VOLUME 96.8 fl (80.0-96.0); PLATELET COUNT, AUTOMATED 131 10^3/uL (150-450); RED BLOOD COUNT 3.39 10^6/uL (4.00-5.40); RED CELL DISTRIBUTION WIDTH 15.8 % (11.5-14.5); WHITE BLOOD COUNT 12.5 10^3/uL (4.0-10.0)
[2018-02-15 13:11] LABS: ANION GAP 11 MEQ/L (8-16); BLOOD UREA NITROGEN 20 MG/DL (7-18); CALCIUM LEVEL 8.2 MG/DL (8.8-10.2); CARBON DIOXIDE LEVEL 30 MEQ/L (21-32); CHLORIDE LEVEL 89 MEQ/L (98-107); CREATININE FOR GFR 0.49 MG/DL (0.55-1.30); GLOMERULAR FILTRATION RATE > 60.0 (>32); GLUCOSE, FASTING 159 MG/DL (70-100); POTASSIUM SERUM 4.4 MEQ/L (3.5-5.1); SODIUM LEVEL 130 MEQ/L (136-145)
== END ==
DX: D72.829 Elevated white blood cell count, unspecified (principal)